=== PATIENT | male | born 1985 | race Caucasian/White ===

== ENCOUNTER 2023-07-07 16:50 | Inpatient (IN) | payer MEDICAID ==
[~2023-07-07] VITALS: Ht 180.3 cm; Wt 107.2 kg
[2023-07-07 16:52] VITALS: BP 133/88; PULSE 98; RESP 20; TEMP 98.2; O2SAT 98
[2023-07-07 18:59] LABS: BASOPHILS % (AUTO) 0.3 % (0.0-2.0); EOSINOPHILS % (AUTO) 0.2 % (0.0-4.0); HEMOGLOBIN 13.5 g/dL (12.0-18.0); LYMPHOCYTES # (AUTO) 0.9 K/uL (2.0-11.5); LYMPHOCYTES % (AUTO) 11.4 % (20.5-51.1); MEAN CORPUSCULAR HEMOGLOBIN 30 pg (27-31); MEAN CORPUSCULAR HGB CONC 36 g/dL (33-37); MEAN CORPUSCULAR VOLUME 83.4 fL (80-94); MONOCYTES # (AUTO) 0.7 K/uL (0.8-1.0); MONOCYTES % (AUTO) 8.7 % (1.7-9.3); NEUTROPHILS # (AUTO) 6.3 K/uL (1.8-7.7); NEUTROPHILS % (AUTO) 79.4 % (42.2-75.2); PLATELET COUNT (AUTO) 181 K/uL (140-450); RED BLOOD CELL COUNT(AUTO) 4.55 MIL/uL (4.20-6.10); RED CELL DISTRIBUTION WIDTH 14.1 % (11.6-13.7)
[2023-07-07 19:17] LABS: CREATININE 0.9 mg/dL (0.6-1.3)
[2023-07-07 19:33] LABS: CALCIUM 7.8 mg/dL (8.5-10.1)
[2023-07-07 19:39] LABS: ALANINE AMINOTRANSFERASE 123 U/L (12-78); ALBUMIN 3.9 g/dL (3.4-5.0); ALCOHOL, BLOOD < 3 mg/dL (<10); ALKALINE PHOSPHATASE 87 U/L (50-136); ASPARTATE AMINOTRANSFERASE 335 U/L (15-37); BILIRUBIN,DIRECT 0.4 mg/dL (0.0-0.3); TOTAL BILIRUBIN 1.4 mg/dL (0.0-1.0); TOTAL PROTEIN, SERUM 6.8 g/dL (6.4-8.2)
[2023-07-07 20:40] LABS: CREATINE KINASE, TOTAL 6316 U/L (39-308)
[2023-07-07 20:41] LABS: ACETAMINOPHEN < 0.5 ug/ml (10-30); SALICYLATE < 2.8 mg/dL (2.8-20.0)
[2023-07-07 21:37] LABS: FLU A ANTIGEN negative (NEGATIVE); FLU B ANTIGEN NEGATIVE (NEGATIVE)
[2023-07-07 22:19] LABS: APPEARANCE,URINE CLEAR (CLEAR); BILIRUBIN,URINE 1+ (NEGATIVE); BLOOD, URINE NEGATIVE (NEGATIVE); COLOR,URINE YELLOW (YELLOW); LEUKOCYTE ESTERASE ,URINE NEGATIVE (NEGATIVE); NITRITE, URINE NEGATIVE (NEGATIVE); PH,URINE 6.5 (5.0-9.0); PROTEIN,URINE NEGATIVE (NEGATIVE); UGLUCOSE NEGATIVE (NEGATIVE); UROBILINOGEN,URINE 0.2 EU/dL (0.2 - 1)
[2023-07-07 22:21] LABS: ICTOTEST POSITIVE (NEGATIVE)
[2023-07-07] MEDS: NACL 0.9% 2,000 ML IV ONE (22:30)
[2023-07-07 22:47] LABS: AMPHETAMINE, URINE POSITIVE ng/ml (NEG <=1000); BARBITURATE, URINE NEGATIVE ng/ml (NEG <=200); BENZODIAZEPINE, URINE NEGATIVE ng/mL (NEG <=200); CANNABINOID, URINE NEGATIVE ng/mL (NEG <=50); COCAINE, URINE NEGATIVE ng/mL (NEG <=300); OPIATE, URINE NEGATIVE ng/mL (NEG <=2000); PHENCYCLIDINE SCREEN,URINE NEGATIVE ng/mL (NEG <=25)
[2023-07-08 02:02] VITALS: O2SAT 100
[2023-07-08 05:13] VITALS: O2SAT 100
[2023-07-08 08:35] LABS: ANION GAP 15.3 (8-16); CALCIUM 7.7 mg/dL (8.5-10.1); CREATININE 0.6 mg/dL (0.6-1.3); POTASSIUM 3.3 mmol/L (3.5-5.1)
[2023-07-08 08:48] LABS: ALANINE AMINOTRANSFERASE 98 U/L (12-78); ALBUMIN 3.3 g/dL (3.4-5.0); ALKALINE PHOSPHATASE 73 U/L (50-136); ASPARTATE AMINOTRANSFERASE 215 U/L (15-37); BILIRUBIN,DIRECT 0.2 mg/dL (0.0-0.3); CREATINE KINASE, TOTAL 5541 U/L (39-308); TOTAL BILIRUBIN 0.9 mg/dL (0.0-1.0); TOTAL PROTEIN, SERUM 6.1 g/dL (6.4-8.2)
[2023-07-08] MEDS ORDERED: POTASSIUM CHLORIDE 10 MEQ TABER PO ONE (10:01)
[2023-07-08] MEDS: POTASSIUM CHLORIDE 10 MEQ TABER PO ONE (10:05)
[2023-07-08] MEDS: NACL 0.9% 2,000 ML IV ONE (17:51)
[2023-07-08 19:38] VITALS: O2SAT 100
[2023-07-08 20:18] LABS: ANION GAP 10.7 (8-16); CALCIUM 7.6 mg/dL (8.5-10.1); CARBON DIOXIDE 29.2 mmol/L (21-32); CREATININE 0.7 mg/dL (0.6-1.3); POTASSIUM 3.9 mmol/L (3.5-5.1)
[2023-07-08 20:32] LABS: CREATINE KINASE, TOTAL 2938 U/L (39-308)
[2023-07-08 21:52] VITALS: O2SAT 98
[2023-07-09 00:16] VITALS: O2SAT 98
[2023-07-09 02:15] VITALS: O2SAT 98
[2023-07-09 04:56] VITALS: O2SAT 98
[2023-07-09] MEDS ORDERED: OLANZapine 5 MG ODT PO SCH (06:00)
[2023-07-09] MEDS ORDERED: OLANZapine 5 MG ODT PO PRN (08:00)
[2023-07-09] MEDS: ESCITALOPRAM 20 MG TAB PO SCH (09:30)
[2023-07-09] MEDS: ONDANSETRON 4 MG TAB PO ONE (10:43)
[2023-07-09 20:32] VITALS: O2SAT 96
[2023-07-09 22:50] VITALS: O2SAT 96
[2023-07-10 01:23] VITALS: O2SAT 96
[2023-07-10 03:35] VITALS: O2SAT 96
[2023-07-10 06:05] VITALS: O2SAT 96
[2023-07-10 09:30] VITALS: O2SAT 96
[2023-07-10] MEDS: ESCITALOPRAM 5 MG PO SCH (09:49)
[2023-07-10] MEDS ORDERED: MAG SULF 2000 MG/WATER PREMIX 50 ML IV PRN (12:00)
[2023-07-10] MEDS ORDERED: POLYETHYLENE GLYCOL 17 GM/PKT PO PRN (12:00)
[2023-07-10] MEDS ORDERED: MORPHINE SULFATE 2 MG/ML SYR IVP PRN (12:00)
[2023-07-10] MEDS ORDERED: POTASSIUM CHLORIDE 10 MEQ TABER PO PRN (12:00)
[2023-07-10] MEDS ORDERED: ONDANSETRON 4 MG/2 ML VIAL IVP PRN (12:00)
[2023-07-10] MEDS ORDERED: HYDROcodone/APAP 5/325 MG 1 TAB TAB PO PRN (12:00)
[2023-07-10] MEDS: buprenorphine HCL 2 MG sublingual tab SL ONE (12:17)
[2023-07-10] MEDS: NACL 0.9% 1,000 ML IV ONE (12:18)
[2023-07-10 13:18] VITALS: O2SAT 96
[2023-07-10 15:21] LABS: CKMB RELATIVE INDEX 0.7 (0.0-2.5); CREATINE KINASE MB 6.9 ng/mL (0-3.6)
[2023-07-10 20:21] VITALS: BP 111/78; PULSE 64; RESP 18; TEMP 97.6
[2023-07-11 04:00] VITALS: BP 95/52; PULSE 57; RESP 18; TEMP 97.5
[2023-07-11 07:23] LABS: BASOPHILS % (AUTO) 0.3 % (0.0-2.0); EOSINOPHILS # (AUTO) 0.2 K/uL (0-0.4); HEMATOCRIT 39.6 % (36-52); LYMPHOCYTES # (AUTO) 1.3 K/uL (2.0-11.5); LYMPHOCYTES % (AUTO) 32.3 % (20.5-51.1); MEAN CORPUSCULAR HEMOGLOBIN 30 pg (27-31); MEAN CORPUSCULAR HGB CONC 36 g/dL (33-37); MEAN CORPUSCULAR VOLUME 83.8 fL (80-94); MONOCYTES # (AUTO) 0.2 K/uL (0.8-1.0); MONOCYTES % (AUTO) 6.1 % (1.7-9.3); NEUTROPHILS # (AUTO) 2.3 K/uL (1.8-7.7); NEUTROPHILS % (AUTO) 57.3 % (42.2-75.2); PLATELET COUNT (AUTO) 160 K/uL (140-450); RED BLOOD CELL COUNT(AUTO) 4.73 MIL/uL (4.20-6.10); RED CELL DISTRIBUTION WIDTH 13.6 % (11.6-13.7)
[2023-07-11 07:50] LABS: ALBUMIN 3.1 g/dL (3.4-5.0); ANION GAP 10.3 (8-16); CALCIUM 7.9 mg/dL (8.5-10.1); CARBON DIOXIDE 30.5 mmol/L (21-32); CREATININE 0.6 mg/dL (0.6-1.3); PHOSPHORUS 3.7 mg/dL (2.5-4.9); POTASSIUM 3.8 mmol/L (3.5-5.1); TOTAL BILIRUBIN 0.3 mg/dL (0.0-1.0)
[2023-07-11 08:00] VITALS: BP 114/74; PULSE 62; RESP 18; TEMP 98.2; O2SAT 96
[2023-07-11] MEDS: buprenorphine HCL 2 MG sublingual tab SL SCH (10:18)
[2023-07-11 12:08] LABS: HEPATITIS A ANTIBODY IGM Negative (Negative); HEPATITIS A ANTIBODY TOTAL Negative (Negative); HEPATITIS B CORE AB TOTAL Negative (Negative); HEPATITIS B CORE, IGM Negative (Negative); HEPATITIS B SURFACE ANTIBODY Reactive (.); HEPATITIS B SURFACE ANTIGEN Negative (Negative)
[2023-07-11 16:00] VITALS: BP 107/68; PULSE 53; RESP 18; TEMP 97.3; O2SAT 95
[2023-07-11 20:00] VITALS: BP 113/69; PULSE 83; RESP 18; TEMP 98; O2SAT 98
[2023-07-11] MEDS: QUEtiapine FUMARATE 25 MG TAB PO SCH (20:06)
[2023-07-12 04:00] VITALS: BP 103/68; PULSE 60; RESP 18; TEMP 97.6; O2SAT 97
[2023-07-12 06:49] LABS: BASOPHILS % (AUTO) 0.5 % (0.0-2.0); EOSINOPHILS # (AUTO) 0.1 K/uL (0-0.4); EOSINOPHILS % (AUTO) 3.7 % (0.0-4.0); HEMATOCRIT 40.1 % (36-52); HEMOGLOBIN 14.3 g/dL (12.0-18.0); LYMPHOCYTES # (AUTO) 1.3 K/uL (2.0-11.5); MEAN CORPUSCULAR HEMOGLOBIN 30 pg (27-31); MEAN CORPUSCULAR HGB CONC 36 g/dL (33-37); MEAN CORPUSCULAR VOLUME 83.1 fL (80-94); MONOCYTES # (AUTO) 0.3 K/uL (0.8-1.0); MONOCYTES % (AUTO) 7.2 % (1.7-9.3); NEUTROPHILS # (AUTO) 2.2 K/uL (1.8-7.7); NEUTROPHILS % (AUTO) 55.6 % (42.2-75.2); PLATELET COUNT (AUTO) 163 K/uL (140-450); RED BLOOD CELL COUNT(AUTO) 4.83 MIL/uL (4.20-6.10); RED CELL DISTRIBUTION WIDTH 13.7 % (11.6-13.7)
[2023-07-12 07:41] LABS: ALBUMIN 3.2 g/dL (3.4-5.0); ANION GAP 10.7 (8-16); CALCIUM 8.3 mg/dL (8.5-10.1); CARBON DIOXIDE 30.9 mmol/L (21-32); CREATININE 0.6 mg/dL (0.6-1.3); MAGNESIUM 2.2 mg/dL (1.8-2.4); PHOSPHORUS 3.9 mg/dL (2.5-4.9); POTASSIUM 3.6 mmol/L (3.5-5.1); TOTAL BILIRUBIN 0.3 mg/dL (0.0-1.0); TOTAL PROTEIN, SERUM 5.9 g/dL (6.4-8.2)
[2023-07-12 08:00] VITALS: BP 117/72; PULSE 71; RESP 20; TEMP 98; O2SAT 98
[2023-07-12 08:03] VITALS: PULSE 78; RESP 20; O2SAT 99
[2023-07-12 17:11] LABS: HEPATITIS C VIRUS ANTIBODY REACTIVE s/co rat (0.00 - 0.9)
[2023-07-12 20:00] VITALS: BP 114/74; PULSE 81; RESP 18; TEMP 98.6; O2SAT 97
[2023-07-13] MEDS: ACETAMINOPHEN 325 MG TAB PO PRN (04:02)
[2023-07-13 04:09] VITALS: BP 103/53; PULSE 63; RESP 20; TEMP 102.3; O2SAT 95
[2023-07-13 07:35] LABS: HEMATOCRIT 39.5 % (36-52); MEAN CORPUSCULAR HEMOGLOBIN 30 pg (27-31); MEAN CORPUSCULAR HGB CONC 35 g/dL (33-37); MEAN CORPUSCULAR VOLUME 83.3 fL (80-94); PLATELET COUNT (AUTO) 137 K/uL (140-450); RED BLOOD CELL COUNT(AUTO) 4.74 MIL/uL (4.20-6.10); RED CELL DISTRIBUTION WIDTH 13.2 % (11.6-13.7); WHITE BLOOD COUNT (AUTO) 6.9 K/uL (4.8-10.8)
[2023-07-13 08:00] VITALS: BP 98/50; PULSE 78; PULSE 88; RESP 18; RESP 20; TEMP 99.3; O2SAT 98; O2SAT 99
[2023-07-13 08:07] LABS: ALBUMIN 3.1 g/dL (3.4-5.0); ANION GAP 12.6 (8-16); CALCIUM 8.1 mg/dL (8.5-10.1); CARBON DIOXIDE 28.2 mmol/L (21-32); CREATININE 0.9 mg/dL (0.6-1.3); MAGNESIUM 1.8 mg/dL (1.8-2.4); PHOSPHORUS 2.4 mg/dL (2.5-4.9); POTASSIUM 3.8 mmol/L (3.5-5.1); TOTAL BILIRUBIN 0.6 mg/dL (0.0-1.0); TOTAL PROTEIN, SERUM 5.9 g/dL (6.4-8.2)
[2023-07-13 08:29] LABS: LYMPHOCYTES % (MANUAL) 4 % (20-46)
[2023-07-13 08:30] LABS: MONOCYTES % (MANUAL) 5 % (5-12)
[2023-07-13 11:45] VITALS: BP 108/53; PULSE 101; RESP 18; TEMP 102.4; O2SAT 99
[2023-07-13 13:56] LABS: APPEARANCE,URINE CLEAR (CLEAR); BILIRUBIN,URINE NEGATIVE (NEGATIVE); BLOOD, URINE NEGATIVE (NEGATIVE); COLOR,URINE YELLOW (YELLOW); LEUKOCYTE ESTERASE ,URINE NEGATIVE (NEGATIVE); NITRITE, URINE NEGATIVE (NEGATIVE); PROTEIN,URINE NEGATIVE (NEGATIVE); UGLUCOSE NEGATIVE (NEGATIVE); UROBILINOGEN,URINE 0.2 EU/dL (0.2 - 1)
[2023-07-13 14:40] LABS: FLU A ANTIGEN negative (NEGATIVE)
[2023-07-13 14:41] LABS: FLU B ANTIGEN NEGATIVE (NEGATIVE); RSV NEGATIVE (NEGATIVE)
[2023-07-13 17:00] VITALS: BP 105/56; PULSE 73; RESP 18; TEMP 99.2; O2SAT 97
[2023-07-13 20:00] VITALS: PULSE 76; RESP 20; O2SAT 99
[2023-07-14 04:00] VITALS: BP 103/64; PULSE 77; RESP 17; TEMP 97.3; O2SAT 95
[2023-07-14 07:28] LABS: BASOPHILS % (AUTO) 0.3 % (0.0-2.0); EOSINOPHILS % (AUTO) 0.4 % (0.0-4.0); HEMATOCRIT 40.5 % (36-52); HEMOGLOBIN 14.5 g/dL (12.0-18.0); LYMPHOCYTES # (AUTO) 0.8 K/uL (2.0-11.5); LYMPHOCYTES % (AUTO) 15.7 % (20.5-51.1); MEAN CORPUSCULAR HEMOGLOBIN 30 pg (27-31); MEAN CORPUSCULAR HGB CONC 36 g/dL (33-37); MEAN CORPUSCULAR VOLUME 82.9 fL (80-94); MONOCYTES # (AUTO) 0.7 K/uL (0.8-1.0); MONOCYTES % (AUTO) 13.6 % (1.7-9.3); NEUTROPHILS # (AUTO) 3.6 K/uL (1.8-7.7); PLATELET COUNT (AUTO) 125 K/uL (140-450); RED BLOOD CELL COUNT(AUTO) 4.88 MIL/uL (4.20-6.10); RED CELL DISTRIBUTION WIDTH 13.7 % (11.6-13.7); WHITE BLOOD COUNT (AUTO) 5.1 K/uL (4.8-10.8)
[2023-07-14 07:45] LABS: ANION GAP 9.6 (8-16); CALCIUM 7.9 mg/dL (8.5-10.1); CREATININE 0.7 mg/dL (0.6-1.3); MAGNESIUM 2.1 mg/dL (1.8-2.4); PHOSPHORUS 3.2 mg/dL (2.5-4.9); POTASSIUM 3.6 mmol/L (3.5-5.1)
[2023-07-14 08:00] VITALS: BP 95/56; PULSE 70; PULSE 78; RESP 18; RESP 19; TEMP 98.8; O2SAT 95; O2SAT 98
[2023-07-14 12:00] VITALS: BP 105/60; PULSE 68; RESP 18; TEMP 98.2; O2SAT 97
[2023-07-14] MEDS: NACL 0.9% 250 ML IV SCH (12:29)
[2023-07-14 19:38] VITALS: BP 97/51; PULSE 77; RESP 16; TEMP 98.8; O2SAT 96
[2023-07-14 20:00] VITALS: PULSE 77; RESP 16; O2SAT 96
[2023-07-15 04:00] VITALS: BP 98/55; PULSE 65; RESP 16; TEMP 98.1; O2SAT 96
[2023-07-15 06:59] LABS: BASOPHILS % (AUTO) 0.4 % (0.0-2.0); EOSINOPHILS # (AUTO) 0.2 K/uL (0-0.4); HEMATOCRIT 38.3 % (36-52); HEMOGLOBIN 13.5 g/dL (12.0-18.0); LYMPHOCYTES # (AUTO) 1.2 K/uL (2.0-11.5); LYMPHOCYTES % (AUTO) 28.5 % (20.5-51.1); MEAN CORPUSCULAR HEMOGLOBIN 29 pg (27-31); MEAN CORPUSCULAR HGB CONC 35 g/dL (33-37); MEAN CORPUSCULAR VOLUME 81.9 fL (80-94); MONOCYTES # (AUTO) 0.7 K/uL (0.8-1.0); MONOCYTES % (AUTO) 15.9 % (1.7-9.3); NEUTROPHILS # (AUTO) 2.2 K/uL (1.8-7.7); NEUTROPHILS % (AUTO) 50.2 % (42.2-75.2); PLATELET COUNT (AUTO) 121 K/uL (140-450); RED BLOOD CELL COUNT(AUTO) 4.68 MIL/uL (4.20-6.10); WHITE BLOOD COUNT (AUTO) 4.3 K/uL (4.8-10.8)
[2023-07-15 08:00] VITALS: BP 100/68; PULSE 78; PULSE 85; RESP 18; TEMP 85; TEMP 98.2; O2SAT 96; O2SAT 98
[2023-07-15 08:04] LABS: ALBUMIN 2.9 g/dL (3.4-5.0); ANION GAP 9.1 (8-16); CALCIUM 8.2 mg/dL (8.5-10.1); CARBON DIOXIDE 32.7 mmol/L (21-32); CREATININE 0.6 mg/dL (0.6-1.3); MAGNESIUM 2.3 mg/dL (1.8-2.4); PHOSPHORUS 3.7 mg/dL (2.5-4.9); POTASSIUM 3.8 mmol/L (3.5-5.1); TOTAL BILIRUBIN 0.7 mg/dL (0.0-1.0); TOTAL PROTEIN, SERUM 6.2 g/dL (6.4-8.2)
[2023-07-15 10:25] VITALS: BP 123/86; PULSE 73; RESP 18; TEMP 97.3; O2SAT 99
[2023-07-15] MEDS ORDERED: BUPR2TAB SL (12:34)
[2023-07-15] MEDS ORDERED: ACET-1182 PO (12:34)
[2023-07-15] MEDS ORDERED: OLAN5ODT9 PO (12:34)
[2023-07-15] MEDS ORDERED: POLY17PD46 PO (12:34)
[2023-07-15] MEDS ORDERED: MELA3TAB21 PO (12:34)
[2023-07-15 20:00] VITALS: BP 103/48; PULSE 61; RESP 18; RESP 6; TEMP 98.3; O2SAT 100
[2023-07-16 03:35] VITALS: BP 113/71; PULSE 66; RESP 19; TEMP 97.3; O2SAT 96
[2023-07-16 07:11] LABS: BASOPHILS % (AUTO) 0.4 % (0.0-2.0); EOSINOPHILS # (AUTO) 0.2 K/uL (0-0.4); EOSINOPHILS % (AUTO) 5.6 % (0.0-4.0); HEMATOCRIT 37.8 % (36-52); HEMOGLOBIN 13.7 g/dL (12.0-18.0); LYMPHOCYTES # (AUTO) 1.5 K/uL (2.0-11.5); LYMPHOCYTES % (AUTO) 35.6 % (20.5-51.1); MEAN CORPUSCULAR HEMOGLOBIN 30 pg (27-31); MEAN CORPUSCULAR HGB CONC 36 g/dL (33-37); MEAN CORPUSCULAR VOLUME 82.3 fL (80-94); MONOCYTES # (AUTO) 0.4 K/uL (0.8-1.0); MONOCYTES % (AUTO) 9.6 % (1.7-9.3); NEUTROPHILS # (AUTO) 2.1 K/uL (1.8-7.7); NEUTROPHILS % (AUTO) 48.8 % (42.2-75.2); PLATELET COUNT (AUTO) 139 K/uL (140-450); RED BLOOD CELL COUNT(AUTO) 4.59 MIL/uL (4.20-6.10); WHITE BLOOD COUNT (AUTO) 4.3 K/uL (4.8-10.8)
[2023-07-16 07:38] LABS: ANION GAP 11.4 (8-16); CALCIUM 8.3 mg/dL (8.5-10.1); CARBON DIOXIDE 30.6 mmol/L (21-32); CREATININE 0.8 mg/dL (0.6-1.3); MAGNESIUM 2.3 mg/dL (1.8-2.4); PHOSPHORUS 4.1 mg/dL (2.5-4.9); TOTAL BILIRUBIN 0.7 mg/dL (0.0-1.0); TOTAL PROTEIN, SERUM 6.2 g/dL (6.4-8.2)
[2023-07-16 08:00] VITALS: BP 105/63; PULSE 75; RESP 18; TEMP 97.8; O2SAT 99
[2023-07-16 16:00] VITALS: BP 100/55; PULSE 57; RESP 18; TEMP 98.9; O2SAT 97
[2023-07-16 20:00] VITALS: PULSE 85; RESP 18; O2SAT 97
[2023-07-17 04:00] VITALS: BP 92/58; PULSE 56; RESP 19; TEMP 98; O2SAT 99
[2023-07-17 07:36] LABS: BASOPHILS % (AUTO) 0.4 % (0.0-2.0); EOSINOPHILS # (AUTO) 0.3 K/uL (0-0.4); EOSINOPHILS % (AUTO) 5.5 % (0.0-4.0); HEMATOCRIT 37.7 % (36-52); HEMOGLOBIN 13.3 g/dL (12.0-18.0); LYMPHOCYTES % (AUTO) 41.6 % (20.5-51.1); MEAN CORPUSCULAR HEMOGLOBIN 29 pg (27-31); MEAN CORPUSCULAR HGB CONC 35 g/dL (33-37); MEAN CORPUSCULAR VOLUME 82.6 fL (80-94); MONOCYTES # (AUTO) 0.4 K/uL (0.8-1.0); MONOCYTES % (AUTO) 7.6 % (1.7-9.3); NEUTROPHILS # (AUTO) 2.2 K/uL (1.8-7.7); NEUTROPHILS % (AUTO) 44.9 % (42.2-75.2); PLATELET COUNT (AUTO) 172 K/uL (140-450); RED BLOOD CELL COUNT(AUTO) 4.56 MIL/uL (4.20-6.10); RED CELL DISTRIBUTION WIDTH 13.8 % (11.6-13.7); WHITE BLOOD COUNT (AUTO) 4.8 K/uL (4.8-10.8)
[2023-07-17 07:59] VITALS: PULSE 68; RESP 18; O2SAT 97
[2023-07-17 08:03] LABS: ANION GAP 12.5 (8-16); CALCIUM 8.2 mg/dL (8.5-10.1); CARBON DIOXIDE 29.6 mmol/L (21-32); CREATININE 0.7 mg/dL (0.6-1.3); MAGNESIUM 2.4 mg/dL (1.8-2.4); PHOSPHORUS 4.1 mg/dL (2.5-4.9); POTASSIUM 4.1 mmol/L (3.5-5.1); TOTAL BILIRUBIN 0.6 mg/dL (0.0-1.0); TOTAL PROTEIN, SERUM 6.1 g/dL (6.4-8.2)
[2023-07-17 12:42] VITALS: BP 88/52; PULSE 60; RESP 18; TEMP 97.8; O2SAT 98
[2023-07-17 20:00] VITALS: BP 91/46; PULSE 67; RESP 18; TEMP 97.8; O2SAT 97
[2023-07-18 04:00] VITALS: BP 103/50; PULSE 54; RESP 16; TEMP 97.8; O2SAT 97
[2023-07-18 07:24] LABS: BASOPHILS % (AUTO) 0.6 % (0.0-2.0); EOSINOPHILS # (AUTO) 0.2 K/uL (0-0.4); EOSINOPHILS % (AUTO) 4.4 % (0.0-4.0); HEMATOCRIT 37.7 % (36-52); HEMOGLOBIN 13.4 g/dL (12.0-18.0); LYMPHOCYTES # (AUTO) 2.1 K/uL (2.0-11.5); LYMPHOCYTES % (AUTO) 39.4 % (20.5-51.1); MEAN CORPUSCULAR HEMOGLOBIN 29 pg (27-31); MEAN CORPUSCULAR HGB CONC 36 g/dL (33-37); MEAN CORPUSCULAR VOLUME 82.3 fL (80-94); MONOCYTES # (AUTO) 0.4 K/uL (0.8-1.0); MONOCYTES % (AUTO) 6.7 % (1.7-9.3); NEUTROPHILS # (AUTO) 2.6 K/uL (1.8-7.7); NEUTROPHILS % (AUTO) 48.9 % (42.2-75.2); PLATELET COUNT (AUTO) 178 K/uL (140-450); RED BLOOD CELL COUNT(AUTO) 4.58 MIL/uL (4.20-6.10); RED CELL DISTRIBUTION WIDTH 13.6 % (11.6-13.7); WHITE BLOOD COUNT (AUTO) 5.3 K/uL (4.8-10.8)
[2023-07-18 08:00] VITALS: PULSE 62; RESP 18; O2SAT 96
[2023-07-18 08:02] LABS: ALBUMIN 3.1 g/dL (3.4-5.0); ANION GAP 12.6 (8-16); CALCIUM 8.3 mg/dL (8.5-10.1); CARBON DIOXIDE 29.3 mmol/L (21-32); CREATININE 0.7 mg/dL (0.6-1.3); MAGNESIUM 2.3 mg/dL (1.8-2.4); PHOSPHORUS 4.2 mg/dL (2.5-4.9); POTASSIUM 3.9 mmol/L (3.5-5.1); TOTAL BILIRUBIN 0.5 mg/dL (0.0-1.0); TOTAL PROTEIN, SERUM 6.1 g/dL (6.4-8.2)
[2023-07-18 08:45] VITALS: BP 105/55; PULSE 62; RESP 18; TEMP 97.7; O2SAT 96
[2023-07-18 16:00] VITALS: BP 106/57; PULSE 64; RESP 18; TEMP 97.2; O2SAT 97
[2023-07-18 20:00] VITALS: BP 95/54; PULSE 68; RESP 18; TEMP 97.8; O2SAT 100
[2023-07-18] MEDS: MELATONIN 3 MG TAB PO PRN (20:59)
[2023-07-19 04:00] VITALS: BP 93/59; PULSE 60; RESP 18; TEMP 97.7; O2SAT 96
[2023-07-19 06:40] LABS: BASOPHILS % (AUTO) 0.3 % (0.0-2.0); EOSINOPHILS # (AUTO) 0.3 K/uL (0-0.4); EOSINOPHILS % (AUTO) 3.2 % (0.0-4.0); HEMATOCRIT 37.7 % (36-52); HEMOGLOBIN 13.5 g/dL (12.0-18.0); LYMPHOCYTES # (AUTO) 2.2 K/uL (2.0-11.5); MEAN CORPUSCULAR HEMOGLOBIN 29 pg (27-31); MEAN CORPUSCULAR HGB CONC 36 g/dL (33-37); MEAN CORPUSCULAR VOLUME 82.2 fL (80-94); MONOCYTES # (AUTO) 0.6 K/uL (0.8-1.0); MONOCYTES % (AUTO) 7.6 % (1.7-9.3); NEUTROPHILS # (AUTO) 5.3 K/uL (1.8-7.7); NEUTROPHILS % (AUTO) 62.9 % (42.2-75.2); PLATELET COUNT (AUTO) 194 K/uL (140-450); RED BLOOD CELL COUNT(AUTO) 4.59 MIL/uL (4.20-6.10); RED CELL DISTRIBUTION WIDTH 13.7 % (11.6-13.7); WHITE BLOOD COUNT (AUTO) 8.3 K/uL (4.8-10.8)
[2023-07-19 07:32] LABS: ANION GAP 13.1 (8-16); CALCIUM 8.2 mg/dL (8.5-10.1); CARBON DIOXIDE 28.3 mmol/L (21-32); CREATININE 0.7 mg/dL (0.6-1.3); MAGNESIUM 2.2 mg/dL (1.8-2.4); PHOSPHORUS 4.5 mg/dL (2.5-4.9); POTASSIUM 4.4 mmol/L (3.5-5.1); TOTAL BILIRUBIN 0.5 mg/dL (0.0-1.0); TOTAL PROTEIN, SERUM 6.1 g/dL (6.4-8.2)
[2023-07-19 08:00] VITALS: PULSE 67; RESP 18; O2SAT 97
[2023-07-19 09:30] VITALS: BP 104/56; PULSE 67; RESP 18; TEMP 98.6; O2SAT 97
[2023-07-19] MEDS ORDERED: buprenorphine HCL 2 MG sublingual tab SL SCH (12:10)
[2023-07-19] MEDS: buprenorphine HCL 2 MG sublingual tab SL SCH (12:21)
[2023-07-19 20:00] VITALS: BP 99/57; PULSE 65; PULSE 67; RESP 18; TEMP 97.6; O2SAT 96; O2SAT 97
[2023-07-20 04:00] VITALS: BP 98/63; PULSE 62; RESP 18; TEMP 97.8; O2SAT 96
[2023-07-20 07:51] VITALS: PULSE 68; RESP 20; O2SAT 99
[2023-07-20 08:00] VITALS: BP 89/54; PULSE 85; RESP 18; TEMP 97.8; O2SAT 96
[2023-07-20 16:00] VITALS: BP 93/55; PULSE 62; RESP 18; TEMP 97.9; O2SAT 96
[2023-07-20 20:00] VITALS: BP 112/58; PULSE 82; RESP 18; RESP 20; TEMP 98.9; O2SAT 98; O2SAT 99
[2023-07-21 08:00] VITALS: BP 113/65; PULSE 82; RESP 18; RESP 20; TEMP 98; O2SAT 98; O2SAT 99
[2023-07-21 20:00] VITALS: BP 97/57; PULSE 73; RESP 12; TEMP 98.1; O2SAT 100
[2023-07-22 04:00] VITALS: BP 104/57; PULSE 74; RESP 14; TEMP 97.9; O2SAT 92
[2023-07-22 08:00] VITALS: PULSE 73; RESP 12; O2SAT 100
[2023-07-22 11:01] VITALS: BP 114/72; PULSE 69; RESP 18; TEMP 98.2; O2SAT 96
[2023-07-22 15:25] VITALS: O2SAT 96
[2023-07-22 16:00] VITALS: BP 110/70; RESP 18; TEMP 97.5; O2SAT 96
[2023-07-22 20:00] VITALS: PULSE 72; RESP 18; O2SAT 99
[2023-07-23 04:00] VITALS: BP 109/58; PULSE 69; RESP 20; TEMP 97.7; O2SAT 98
[2023-07-23 08:00] VITALS: BP 115/73; PULSE 63; RESP 18; TEMP 97.3; O2SAT 96
[2023-07-23 16:00] VITALS: BP 99/64; PULSE 69; RESP 18; TEMP 97.6; O2SAT 96
[2023-07-23 16:45] VITALS: O2SAT 95
[2023-07-23 19:57] VITALS: BP 96/72; PULSE 78; RESP 18; TEMP 98; O2SAT 95
[2023-07-23 20:00] VITALS: PULSE 78; RESP 18; O2SAT 95
[2023-07-24 03:58] VITALS: BP 108/69; PULSE 71; RESP 16; TEMP 98.7; O2SAT 100
[2023-07-24 08:00] VITALS: BP 107/68; PULSE 80; RESP 18; TEMP 97.4; O2SAT 96
[2023-07-24] MEDS: GABAPENTIN 300 MG CAP PO SCH (11:08)
[2023-07-24 16:00] VITALS: BP 120/82; PULSE 75; RESP 18; TEMP 98.9; O2SAT 95
[2023-07-24 20:00] VITALS: BP 97/61; PULSE 75; RESP 18; TEMP 98; O2SAT 98
[2023-07-25] MEDS: OLANZapine 5 MG ODT PO PRN (01:05)
[2023-07-25 04:00] VITALS: BP 105/69; PULSE 81; RESP 20; TEMP 97.4; O2SAT 98
[2023-07-25 08:00] VITALS: PULSE 66; RESP 18; O2SAT 97
[2023-07-25] MEDS: GABAPENTIN 300 MG CAP PO SCH ×2 (09:06→13:02)
[2023-07-25 12:00] VITALS: BP 117/60; PULSE 84; RESP 20; TEMP 98.5; O2SAT 98
[2023-07-25 20:00] VITALS: BP 107/66; PULSE 62; PULSE 78; RESP 18; RESP 20; TEMP 96.5; O2SAT 95; O2SAT 97
[2023-07-26 04:00] VITALS: BP 100/60; PULSE 60; RESP 18; TEMP 97.4; O2SAT 97
[2023-07-26 08:00] VITALS: BP 103/65; PULSE 68; RESP 20; TEMP 97.6; O2SAT 96
[2023-07-26] MEDS: GABAPENTIN 300 MG CAP PO SCH (13:57)
[2023-07-26 16:00] VITALS: BP 97/56; PULSE 69; RESP 20; TEMP 97.8
[2023-07-26 20:00] VITALS: BP 111/70; PULSE 78; RESP 18; TEMP 98; O2SAT 97
[2023-07-27 04:00] VITALS: BP 122/84; PULSE 72; RESP 18; TEMP 97.1; O2SAT 99
[2023-07-27 08:00] VITALS: PULSE 88; RESP 17; O2SAT 99
[2023-07-27 12:00] VITALS: BP 108/77; PULSE 83; RESP 17; TEMP 97.8; O2SAT 100
[2023-07-27] MEDS ORDERED: IBUPROFEN 400 MG TAB PO PRN (16:30)
[2023-07-27 18:16] VITALS: BP 108/67; PULSE 83; RESP 18; TEMP 98.1
== END 2023-07-27 20:20 | DRG 351 ==
LOC: MED 16:50 → MMU 07-10 11:56 → MTU 07-10 18:21
PROVIDERS: ADMIT Family Medicine; ATTEND Family Medicine
DX: M62.82 Rhabdomyolysis (principal); I95.9 Hypotension, unspecified; R45.851 Suicidal ideations; E83.51 Hypocalcemia; K75.9 Inflammatory liver disease, unspecified; E87.1 Hypo-osmolality and hyponatremia; R50.9 Fever, unspecified; Z20.822 Contact with and (suspected) exposure to COVID-19; F19.10 Other psychoactive substance abuse, uncomplicated; F15.19 Other stimulant abuse with unspecified stimulant-induced disorder; R74.01 Elevation of levels of liver transaminase levels; E87.6 Hypokalemia; Z79.899 Other long term (current) drug therapy
CPT/HCPCS: 36415; 71045; 73030; 76705; 80048; 80053; 80076; 80305; 81003; 82550; 82553; 83735; 84100; 85025; 86704; 86706; 86708; 86709; 86803; 87040; 87081; 87086; 87340; 87420; 96360; 96361; 99285; G0480; G0482; J7030; Q0092; Q0162